=== PATIENT | male | born 1965 | race Caucasian/White ===

== ENCOUNTER 2020-04-20 17:23 | Inpatient (IN) | payer OTHER ==
[~2020-04-20 17:23] MED LIST: Iopamidol-370 76% 500 ML 1 ML ONE
[2020-04-20] MEDS ORDERED: Morphine 4 MG/ML VIAL ONE ×2 (17:31→18:02)
[2020-04-20] MEDS ORDERED: Adacel (T-DAP) 0.5 ML SYRINGE ONE (17:33)
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
[2020-04-20 17:48] LABS: #Basophils 0.1 thou/uL (0.0-0.2); #Eosinphils 0.2 thou/uL (0.0-0.7); #Lymphocytes 5.2 thou/uL (1.20-3.40); #Neutrophils 5.6 thou/uL (1.40-6.50); %Basophils 0.7 % (0.0-1.0); %Eosinophils 1.5 % (0.0-10.0); %Lymphocytes 42.8 % (21.0-51.0); %Monocytes 8.4 % (0.0-10.0); %Neutrophils 46.6 % (42.0-75.0); Hemoglobin 16.9 g/dL (14.0-18.0); Mean Corpuscular HGB CONC 33.3 g/dL (32.0-36.0); Mean Corpuscular Hemoglobin 31.1 pg (27.0-31.0); Mean Corpuscular Volume 93.5 fL (78.0-98.0); Mean Platelet Volume 8.9 fL (7.4-10.4); Platelet Count 178 thou/uL (130-400); RBC Distribution Width 12.2 % (11.5-14.5); Red Blood Cell (RBC) Count 5.44 mill/uL (4.70-6.10)
[2020-04-20 17:54] LABS: Prothrombin Time 12.7 sec (12.0-14.7)
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
[2020-04-20 18:08] LABS: ALT (SGPT) 27 U/L (8-55); AST (SGOT) 30 U/L (5-34); Albumin 4.2 g/dL (3.5-5.0); Alkaline Phosphatase 99 U/L (40-110); Anion Gap 13 mmol/L (10-20); BUN (Urea Nitrogen) 15 mg/dL (8.4-25.7); Bilirubin, Total 0.8 mg/dL (0.2-1.2); Calc. Creatinine Clearance 0 mL/min (70-130); Calcium 9.3 mg/dL (7.8-10.44); Carbon Dioxide 26 mmol/L (22-29); Chloride 103 mmol/L (98-107); Estimated GFR-MDRD 55; Globulin 3.1 g/dL (2.4-3.5); Glucose 109 mg/dL (70-105); Lipase 11 U/L (8-78); Potassium 4.3 mmol/L (3.5-5.1); Protein, Total 7.3 g/dL (6.0-8.3); Sodium 138 mmol/L (136-145)
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
[2020-04-20 18:59] LABS: CK (CPK) 350 U/L (30-200); Magnesium 2.2 mg/dL (1.6-2.6); Phosphorus 3.5 mg/dL (2.3-4.7)
[2020-04-20] MEDS ORDERED: hydrALAZINE 20 MG/ML VIAL SLOW IVP PRN (19:37)
[2020-04-20] MEDS ORDERED: Ondansetron PF 4 MG/2 ML Vial IVP PRN (19:37)
[2020-04-20] MEDS ORDERED: Dextrose 50% Abboject 50 ML SYRINGE SLOW IVP PRN (19:37)
[2020-04-20] MEDS ORDERED: Dextrose 5% in Water 1,000 ML IV PRN (19:37)
[2020-04-20] MEDS ORDERED: Morphine 4 MG/ML VIAL SLOW IVP PRN (19:37)
[2020-04-20] MEDS ORDERED: HYDROmorphone 0.5 MG/0.5 ML SYRINGE ONE (19:38)
[2020-04-20] MEDS ORDERED: Acetaminophen 500 MG TAB ONE (19:38)
[2020-04-20] MEDS ORDERED: traMADol HCl 50 MG TAB PO PRN ×2 (19:43)
[2020-04-20] MEDS ORDERED: Sodium Chloride 0.9% 1,000 ML IV SCH (19:45)
[2020-04-20] MEDS ORDERED: Gabapentin 300 MG CAP PO SCH (21:00)
[2020-04-20] MEDS ORDERED: Acetaminophen/Codeine 30-300mg Tablet PO PRN (21:34)
[2020-04-20] MEDS: Cyclobenzaprine 10 MG TAB PO PRN (21:38)
[2020-04-20] MEDS: Senokot S 8.6-50 MG TAB PO SCH (21:38)
[2020-04-20] MEDS: Famotidine/PF 20 mg/2ml Vial SLOW IVP SCH (21:38)
[2020-04-20] MEDS: Bacitracin Zinc Ointment 30 gm TUBE TOP SCH (21:48)
[2020-04-20 22:28] VITALS: BMI 33.6
[2020-04-20] MEDS: Acetaminophen 325 MG TAB PO SCH (23:07)
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
[2020-04-20] MEDS ORDERED: Acetaminophen 500 MG TAB PO SCH (23:59)
[2020-04-21] MEDS: Acetaminophen/Codeine 30-300mg Tablet PO PRN ×3 (01:37→14:03)
[2020-04-21] MEDS ORDERED: Sodium Chloride 0.9% 500 ML IV SCH (02:15)
[2020-04-21] MEDS: Acetaminophen 325 MG TAB PO SCH ×3 (05:34→17:52)
[2020-04-21 05:38] LABS: #Eosinphils 0.1 thou/uL (0.0-0.7); #Lymphocytes 3.2 thou/uL (1.20-3.40); #Monocytes 1.1 thou/uL (0.11-0.59); %Basophils 0.4 % (0.0-1.0); %Eosinophils 1.1 % (0.0-10.0); %Lymphocytes 30.8 % (21.0-51.0); %Monocytes 10.5 % (0.0-10.0); %Neutrophils 57.2 % (42.0-75.0); Hemoglobin 14.1 g/dL (14.0-18.0); Mean Corpuscular HGB CONC 32.2 g/dL (32.0-36.0); Mean Corpuscular Hemoglobin 30.5 pg (27.0-31.0); Mean Corpuscular Volume 94.8 fL (78.0-98.0); Mean Platelet Volume 8.9 fL (7.4-10.4); Platelet Count 136 thou/uL (130-400); RBC Distribution Width 12.1 % (11.5-14.5); Red Blood Cell (RBC) Count 4.61 mill/uL (4.70-6.10); White Blood Cell (WBC) Count 10.4 thou/uL (4.8-10.8)
[2020-04-21 05:57] LABS: Anion Gap 9 mmol/L (10-20); BUN (Urea Nitrogen) 14 mg/dL (8.4-25.7); Calc. Creatinine Clearance 152 mL/min (70-130); Calcium 8.3 mg/dL (7.8-10.44); Carbon Dioxide 27 mmol/L (22-29); Chloride 104 mmol/L (98-107); Estimated GFR-MDRD 83; Glucose 101 mg/dL (70-105); Magnesium 1.9 mg/dL (1.6-2.6); Phosphorus 3.5 mg/dL (2.3-4.7); Sodium 136 mmol/L (136-145)
[2020-04-21] MEDS ORDERED: Sodium Chloride 0.9% 1,000 ML IV SCH (08:15)
[2020-04-21] MEDS: Tamsulosin HCl 0.4 MG CAP PO SCH (08:38)
[2020-04-21] MEDS: Famotidine/PF 20 mg/2ml Vial SLOW IVP SCH ×2 (08:39→21:19)
[2020-04-21] MEDS: Senokot S 8.6-50 MG TAB PO SCH ×2 (08:40→21:19)
[2020-04-21] MEDS: Bacitracin Zinc Ointment 30 gm TUBE TOP SCH ×2 (08:40→21:21)
[2020-04-21 10:24] LABS: Cocaine Metabolite Screen Not Detected (NotDetected); Medtox Reader # READER 4; Phencyclidine (PCP) Not Detected (NotDetected); THC/Cannabinoid Screen Not Detected (NotDetected)
[2020-04-21 10:25] LABS: Amphetamine Not Detected (NotDetected); Barbiturates Screen Not Detected (NotDetected); Benzodiazepine Screen Not Detected (NotDetected); Medtox Control Line Valid? VALID (VALID); Methadone Not Detected (NotDetected); Methamphetamine Not Detected (NotDetected); Opiate Screen Detected (NotDetected); Oxycodone Screen Not Detected (NotDetected); Tricyclic Screen Not Detected (NotDetected)
[2020-04-21] MEDS ORDERED: Ibuprofen 600 MG TAB PO PRN (10:32)
[2020-04-21] MEDS: Cyclobenzaprine 10 MG TAB PO PRN ×2 (10:50→21:21)
[2020-04-21] MEDS: Polyethylene Glycol 3350 17 GM Packet PO SCH (13:00)
[2020-04-21] MEDS ORDERED: Ibuprofen 600 MG TAB PO SCH (16:00)
[2020-04-21] MEDS ORDERED: Acetaminophen/Codeine 30-300mg Tablet PO PRN (16:20)
[2020-04-21] MEDS: Acetaminophen/Codeine 30-300mg Tablet PO SCH ×2 (17:26→23:36)
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
[2020-04-21] MEDS: Ibuprofen 600 MG TAB PO SCH (21:19)
[2020-04-22] MEDS: Acetaminophen 325 MG TAB PO SCH ×3 (00:46→11:35)
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
[2020-04-22] MEDS: Acetaminophen/Codeine 30-300mg Tablet PO SCH ×2 (05:12→11:35)
[2020-04-22] MEDS: Ibuprofen 600 MG TAB PO SCH (05:13)
[2020-04-22 05:49] LABS: #Basophils 0.1 thou/uL (0.0-0.2); #Eosinphils 0.2 thou/uL (0.0-0.7); #Lymphocytes 3.1 thou/uL (1.20-3.40); #Monocytes 0.9 thou/uL (0.11-0.59); #Neutrophils 5.5 thou/uL (1.40-6.50); %Basophils 0.8 % (0.0-1.0); %Eosinophils 1.6 % (0.0-10.0); %Lymphocytes 32.1 % (21.0-51.0); %Monocytes 8.7 % (0.0-10.0); %Neutrophils 56.8 % (42.0-75.0); Hemoglobin 15.2 g/dL (14.0-18.0); Mean Corpuscular HGB CONC 31.7 g/dL (32.0-36.0); Mean Corpuscular Hemoglobin 30.5 pg (27.0-31.0); Mean Corpuscular Volume 96.2 fL (78.0-98.0); Mean Platelet Volume 8.9 fL (7.4-10.4); Platelet Count 134 thou/uL (130-400); Red Blood Cell (RBC) Count 4.98 mill/uL (4.70-6.10); White Blood Cell (WBC) Count 9.7 thou/uL (4.8-10.8)
[2020-04-22 06:03] LABS: Anion Gap 12 mmol/L (10-20); BUN (Urea Nitrogen) 11 mg/dL (8.4-25.7); Calc. Creatinine Clearance 143 mL/min (70-130); Calcium 8.7 mg/dL (7.8-10.44); Carbon Dioxide 27 mmol/L (22-29); Chloride 104 mmol/L (98-107); Estimated GFR-MDRD 77; Glucose 97 mg/dL (70-105); Magnesium 2.3 mg/dL (1.6-2.6); Phosphorus 3.7 mg/dL (2.3-4.7); Potassium 4.3 mmol/L (3.5-5.1); Sodium 139 mmol/L (136-145)
[2020-04-22] MEDS: Polyethylene Glycol 3350 17 GM Packet PO SCH (08:15)
[2020-04-22] MEDS: Bacitracin Zinc Ointment 30 gm TUBE TOP SCH (08:16)
[2020-04-22] MEDS: Tamsulosin HCl 0.4 MG CAP PO SCH (08:16)
[2020-04-22] MEDS: Senokot S 8.6-50 MG TAB PO SCH (08:16)
[2020-04-22 11:50] VITALS: BP 134/78; TEMP 97.4
== END 2020-04-22 12:54 | disposition home or self-care (01) | DRG 183 ==
LOC: ERS 17:23 → SURG A 19:44
PROVIDERS: ADMIT Surgery; ATTEND Surgery
DX: S22.42XA Multiple fractures of ribs, left side, initial encounter for closed fracture (principal); S36.031A Moderate laceration of spleen, initial encounter; N17.9 Acute kidney failure, unspecified; G91.8 Other hydrocephalus; R40.2412 Glasgow coma scale score 13-15, at arrival to emergency department; F17.210 Nicotine dependence, cigarettes, uncomplicated; V29.88XA Motorcycle rider (driver) (passenger) injured in other specified transport accidents, initial encounter; Y92.488 Other paved roadways as the place of occurrence of the external cause; Z88.6 Allergy status to analgesic agent; Z85.528 Personal history of other malignant neoplasm of kidney
CPT/HCPCS: 36415; 70450; 71045; 71260; 72125; 74177; 80048; 80053; 80306; 80307; 82550; 83605; 83690; 83735; 84100; 85025; 85610; 86850; 86900; 86901; 90471; 90715; 94640; 96361; 96365; 96375; G0390; J0690; J1170; J2270; J7620; Q9967; S0028